=== PATIENT | male | born 1960 | race African-American/Black ===

== ENCOUNTER 2018-06-11 07:45 | Emergency (ER) | payer OTHER ==
[~2018-06-11] VITALS: Ht 172.7 cm; Wt 81.3 kg
[2018-06-11 11:42] VITALS: BP 155/72
== END 2018-06-11 12:02 | disposition home or self-care (01) ==
LOC: ER 08:22
DX: M65.311 Trigger thumb, right thumb (principal); F12.10 Cannabis abuse, uncomplicated
CPT/HCPCS: 29125; 99282; 99283

== ENCOUNTER 2018-11-26 06:08 | Emergency (ER) | payer OTHER ==
[~2018-11-26] VITALS: Ht 172.7 cm; Wt 83.0 kg
[2018-11-26] MEDS ORDERED: IBUPROFEN 600MG TABLET PO ONE (07:15)
[2018-11-26 08:55] VITALS: BP 137/78
== END 2018-11-26 08:59 | disposition home or self-care (01) ==
LOC: ER 06:08
DX: M19.011 Primary osteoarthritis, right shoulder (principal); F12.10 Cannabis abuse, uncomplicated; W18.30XA Fall on same level, unspecified, initial encounter; Y93.66 Activity, soccer; Y92.89 Other specified places as the place of occurrence of the external cause; Y99.8 Other external cause status
CPT/HCPCS: 73030; 99283

== ENCOUNTER 2022-12-28 10:44 | Emergency (ER) | payer OTHER ==
[~2022-12-28] VITALS: Ht 172.7 cm; Wt 74.9 kg
[2022-12-28 10:49] VITALS: PULSE 85; RESP 18
[2022-12-28 10:59] VITALS: BP 129/61; TEMP 98.6; O2SAT 100
[2022-12-28 11:38] LABS: BASOPHILS % 0.7 % (0.0-2.0); DIFFERENTIAL COMMENT 0; EOSINOPHILS % 1.4 % (0.0-5.0); HEMOGLOBIN. 12.7 g/dL (14.0-18.0); LYMPHOCYTES % 15.1 % (20.0-50.0); MEAN CORPUSCULAR HEMOGLOBIN 25.2 pg (28.0-32.0); MEAN CORPUSCULAR HGB CONC 32.6 g/dL (31.0-37.0); MEAN CORPUSCULAR VOLUME 77.2 fL (80.0-94.0); MEAN PLATELET VOLUME 6.7 fl (7.4-10.4); MONOCYTES % 10.7 % (2.0-8.0); NEUTROPHILS % 72.1 % (40.0-76.0); PLATELET 338 x1000/uL (130-400); RED BLOOD CELL COUNT 5.06 mill/uL (4.7-6.1); RED CELL DISTRIBUTION WIDTH 14.6 % (11.6-14.6); WHITE BLOOD COUNT 5.5 x1000/uL (4.5-11.0)
[2022-12-28 11:48] LABS: INR 0.9; PROTHROMBIN TIME 10.1 sec (9.6-11.0)
[2022-12-28 11:54] LABS: INDEX HEMOLYSI 1 (1-3)
[2022-12-28 11:56] LABS: CHLORIDE 106 mEq/L (98-107); INDEX HEMOLYSI 1 (1-3); INDEX ICTERIC 1 (1-4); INDEX LIPEMIC 1 (1-3); POTASSIUM 3.7 mEq/L (3.5-5.1); SODIUM 134 mEq/L (136-145)
[2022-12-28 11:57] LABS: AMMONIA 37 uMol/L (<32)
[2022-12-28 12:04] LABS: ALBUMIN 3.7 g/dL (3.4-5.0); CALCIUM 8.5 mg/dL (8.5-10.1); CARBON DIOXIDE 27 mEq/L (21-32); CREATININE 1.5 mg/dL (0.6-1.3); GLUCOSE 148 mg/dL (70-105); PROTEIN TOTAL 7.8 g/dL (6.0-8.3); UREA NITROGEN BLOOD 24 mg/dL (7-21)
[2022-12-28 12:05] LABS: ALANINE AMINOTRANSFERASE 42 IU/L (13-61); ASPARTATE AMINOTRANSFERASE 32 IU/L (15-37); ETHANOL BLOOD < 10 mg/dL (-10); TROPONIN I HIGH SENSITIVITY 39 ng/L (<78)
== END 2022-12-28 15:10 | disposition home or self-care (01) ==
LOC: ER 10:44
DX: R55 Syncope and collapse (principal); N17.9 Acute kidney failure, unspecified
CPT/HCPCS: 36415; 71045; 80053; 80320; 82140; 83605; 84484; 85025; 93005; 99285; G0480